=== PATIENT | female | born 1975 | race American Indian/Alaskan Native ===

== ENCOUNTER 2017-05-20 06:21 | Day surgery (SDC) | payer OTHER ==
[2017-05-20] MEDS ORDERED: WATER FOR IRRIG STERILE IR ONE (07:27)
--- NOTE | 2017-05-20 07:27 | Anesthesia Day of Surgery ---
Anesthesia Day of Surgery - Day of Surgery Patient Examined: Yes Patient H&P Reviewed: Yes Patient is NPO: Yes
--- NOTE | 2017-05-20 07:29 | Anesthesia Consultation ---
Anesthesia Consult and Med Hx Date of service: 05/20/17 - Airway Anesthetic Teeth Evaluation: Good, Chipped (lower molar) ROM Head & Neck: Adequate Mental/Hyoid Distance: Adequate Mallampati Class: Class II Intubation Access Assessment: Probably Good - Pulmonary Exam CTA: Yes - Cardiac Exam Cardiac Exam: RRR - Pre-Operative Health Status ASA Pre-Surgery Classification: ASA3 Proposed Anesthetic Plan: MAC - Pulmonary Hx Smoking: Yes (quit years ago) Hx Asthma: No Hx Sleep Apnea: No - Cardiovascular System Hx Hypertension: Yes - Endocrine Hx Non-Insulin Dependent Diabetes: No - Other Systems Hx Obesity: Yes
--- NOTE | 2017-05-20 07:35 | Discharge Summary ---
Providers - Providers Date of discharge: 05/20/17 Attending physician: RAYMON CAMPOS Hospitalization Condition: Good Procedures: egd Disposition: - TO HOME OR SELFCARE Core Measure Documentation - Palliative Care Palliative Care/ Comfort Measures: Not Applicable - Core Measures Any of the following diagnoses?: none Exam - Physical Exam Narrative exam: unchanged from pre-op Plan Activity: no restrictions Weight Bearing Status: Full Weight Bearing Diet: regular
[2017-05-20] MEDS ORDERED: APRESOLINE ONE (07:38)
--- NOTE | 2017-05-20 07:54 | Operative Report ---
Operative Report Operative Report: PROCEDURE - EGD DATE 05/20/17 SURGERY: Upper endoscopy. SURGEON: Keshia Roland M.D. PRE OP DX: GERD, with hx of gastric banding POST OP DX: normal banded gastric anatomy TYPE OF ANESTHESIA: MAC. ESTIMATED BLOOD LOSS: None. COMPLICATIONS: None. SPECIMENS REMOVED: None. FINDINGS: 1. normal banded gastric anatomy INDICATIONS:INDICATION FOR PROCEDURE: Patient is a 41-year-old female with a long history of morbid obesity. She is planned to have removal of her band and conversion to another procedure. We are evaluating for any pathology that may be prohibitive to that surgery. PROCEDURE DETAILS: After consent was reviewed, patient was taken back to the operating room where patient was placed in the left lateral decubitus position and a bite block was placed in the mouth. After a time-out was called, MAC anesthesia was initiated. I then passed the endoscope into her oropharynx, into her esophagus, visualized the entire esophagus, which was all within normal limits. I then visualized the stomach, there was an expected proximal narrowing due to extramluminal compression from her gastric band. and the first portion of the duodenum and there were no abnormalities I could clearly visualize. I then retroflexed the scope in the stomach and visualized the underside of the band, there was no signs of erosion or other pathology. I then desufflated the stomach and removed the endoscope. Patient tolerated procedure well and was transferred to recovery room in good and stable condition.
[2017-05-20] MEDS: NACL 0.9% 1000 ML 1,000 ML IV SCH ×2 (07:56→13:14)
[2017-05-20] MEDS ORDERED: LOPRESSOR IV ONE (08:32)
[2017-05-20] MEDS ORDERED: DIPRIVAN 10 MG/ML IV ONE (10:26)
[2017-05-20 11:15] VITALS: BP 148/99
--- NOTE | 2017-05-20 11:46 | Post Anesthesia Evaluation ---
- Post Anesthesia Evaluation Patient Participated: Yes Airway Patent: Yes Stable Respiratory Function: Yes Nausea/Vomiting: No Temp > 96.8F: Yes Pain Manageable: Yes Adequeate Hydration: Yes Anesthesia Complications: No Block Receding Appropriately: Not Applicable Patient on Ventilator: No
== END 2017-05-20 06:22 | disposition home or self-care (01) ==
LOC: GIO 06:21
PROVIDERS: ATTEND Surgery
DX: K21.9 Gastro-esophageal reflux disease without esophagitis (principal); E66.01 Morbid (severe) obesity due to excess calories; I10 Essential (primary) hypertension; Z98.84 Bariatric surgery status; Z87.891 Personal history of nicotine dependence; Z91.040 Latex allergy status; Z91.018 Allergy to other foods; Z68.43 Body mass index [BMI] 50.0-59.9, adult
CPT/HCPCS: 43235; 81025; J0360; J2704; J7030